=== PATIENT | female | born 1985 | race Caucasian/White ===

== ENCOUNTER 2022-07-18 11:09 | Emergency (ER) | payer OTHER ==
--- NOTE | 2022-07-18 12:12 | XRAY Report ---
PROCEDURE: Chest 2 View X-Ray INDICATIONS: cough TECHNIQUE: 2 views of the chest were acquired. COMPARISON: None. FINDINGS: Surgical changes and devices: None. Lungs and pleura: No pleural effusions or pneumothorax. Mild pulmonary interstitial prominence. No f ocal consolidation. Mediastinum: Mediastinal contours are normal. Heart size is normal. Bones and chest wall: No suspicious bony abnormalities. Soft tissues appear unremarkable. IMPRESSION: No acute cardiopulmonary disease. Reviewed by: Sabas Dennison MD on 07/18/2022 12:10 PM [facility] Approved by: Sabas Dennison MD on 07/18/2022 12:10 PM [facility] Station ID: [id number]
[2022-07-18 12:42] LABS: B. PARAPERTUSSIS- RESP PCR PAN NOT DETECTED; B. PERTUSSIS- RESP PCR PANEL NOT DETECTED; C. PNEUMONIAE- RESP PCR PANEL NOT DETECTED; CORONAVIRUS 229E-RESP PCR NOT DETECTED; CORONAVIRUS HKU1-RESP PCR NOT DETECTED; CORONAVIRUS NL63-RESP PCR NOT DETECTED; CORONAVIRUS OC43-RESP PCR NOT DETECTED; HUMAN METAPNEUMOVIRUS NOT DETECTED; INFLUENZA A- RESP PCR PANEL NOT DETECTED; INFLUENZA B - RESP PCR PANEL NOT DETECTED; M. PNEUMONIAE- RESP PCR PANEL NOT DETECTED; PARAINFLUENZA VIRUS 1 DETECTED; PARAINFLUENZA VIRUS 2 NOT DETECTED; PARAINFLUENZA VIRUS 3 NOT DETECTED; PARAINFLUENZA VIRUS 4 NOT DETECTED; RHINOVIRUS/ENTEROVIRUS NOT DETECTED; RSV- RESP PCR PANEL NOT DETECTED; SARS-CoV-2 -RESP PCR PANEL NOT DETECTED
--- NOTE | 2022-07-18 13:00 | ED Physician Documentation ---
PD HPI URI - Stated complaint Stated Complaint: COUGH - Chief complaint Chief Complaint: Resp - History obtained from History obtained from: Patient - Additional information Additional information: Previously healthy 37-year-old woman has had nasal congestion and a productive cough for the last 6 days. No fevers or chills. She was exposed to a sick contact at work. No history of heart or lung disease. PD PAST MEDICAL HISTORY - Present Medications Home Medications: Ambulatory Orders Medication Instructions Recorded Confirmed Albuterol Sulf [Ventolin Hfa 1 - 2 puffs INH Q4HR PRN #1 each 07/18/22 Inhaler] Benzonatate [Tessalon] 200 mg PO TID PRN #20 cap 07/18/22 guaiFENesin/CODEINE [Robitussin AC] 5 - 10 ml PO Q6H PRN #120 ml 07/18/22 - Allergies Allergies/Adverse Reactions: Allergies Allergy/AdvReac Type Severity Reaction Status Date / Time diazepam [From Valium] Allergy Anaphylaxis Verified 07/18/22 11:41 nitrofurantoin Allergy Anaphylaxis Verified 07/18/22 11:41 [From Macrobid] tetracycline Allergy Hives Verified 07/18/22 11:41 PD ED PE NORMAL - Vitals Vital signs reviewed: Yes - General General: Alert and oriented X 3, No acute distress - HEENT HEENT: Pharynx benign - Neck Neck: Supple, no meningeal sign, No bony TTP - Cardiac Cardiac: RRR, No murmur - Respiratory Respiratory: No respiratory distress, Other (Mild diffuse expiratory wheezes without focal findings) - Abdomen Abdomen: Non tender - Neuro Neuro: Alert and oriented X 3, Normal speech Results - Vitals Vitals: Vital Signs - 24 hr 07/18/22 11:39 Temperature 37.1 C Heart Rate 82 Respiratory 24 Rate Blood Pressure 133/81 H O2 Saturation 96 Oxygen O2 Source Room air - Labs Labs: Laboratory Tests 07/18/22 11:46 Nasal Adenovirus (PCR) NOT DETECTED Nasal B. parapertussis DNA (PCR) NOT DETECTED Nasal Coronavir 229E PCR NOT DETECTED Nasal Coronavir HKU1 PCR NOT DETECTED Nasal Coronavir NL63 PCR NOT DETECTED Nasal Coronavir OC43 PCR NOT DETECTED Nasal Enterovir/Rhinovir PCR NOT DETECTED Nasal Influenza B PCR NOT DETECTED Nasal Influenza A PCR NOT DETECTED Nasal Parainfluen 1 PCR DETECTED A Nasal Parainfluen 2 PCR NOT DETECTED Nasal Parainfluen 3 PCR NOT DETECTED Nasal Parainfluen 4 PCR NOT DETECTED Nasal RSV (PCR) NOT DETECTED Nasal B.pertussis DNA PCR NOT DETECTED Nasal C.pneumoniae (PCR) NOT DETECTED Liu Human Metapneumo PCR NOT DETECTED Nasal M.pneumoniae (PCR) NOT DETECTED Nasal SARS-CoV-2 (PCR) NOT DETECTED - Rads (name of study) 2 view chest x-ray is clear. Radiology: Final report received, EMP read indepedently PD Medical Decision Making - ED course ED course: 37-year-old woman with viral respiratory infection, bio fire positive for parainfluenza. Chest x-ray clear. She appears well. Will treat symptomatically as there is no evidence of bacterial issue. Departure - Departure Disposition: 01 Home, Self Care Clinical Impression: Viral bronchitis, Parainfluenza Condition: Good Record reviewed to determine appropriate education?: Yes Instructions: ED Viral Syndrome Prescriptions: Albuterol Sulf [Ventolin Hfa Inhaler] 1 - 2 puffs INH Q4HR PRN #1 each PRN Reason: Shortness Of Air/Wheezing guaiFENesin/CODEINE [Robitussin AC] 5 - 10 ml PO Q6H PRN #120 ml PRN Reason: Cough Benzonatate [Tessalon] 200 mg PO TID PRN #20 cap PRN Reason: Cough Comments: I sent your prescriptions electronically to the [facility] in [place]. Return for new or worsening symptoms or if not better over the next 3 to 5 days[address] not drink or drive while taking prescription cough medicine with codeine. Forms: Activity restrictions
[2022-07-18 13:33] VITALS: BP 142/77
== END 2022-07-18 13:32 | disposition home or self-care (01) ==
LOC: ED 11:09
DX: J20.4 Acute bronchitis due to parainfluenza virus (principal); Z20.822 Contact with and (suspected) exposure to COVID-19
CPT/HCPCS: 87633; 99284

== ENCOUNTER 2022-12-14 08:30 | Outpatient (CLI) | payer OTHER | END 2022-12-14 08:45 | disposition home or self-care (01) | LOC: LAB.N 08:30 | PROVIDERS: ATTEND Specialist | DX: R30.0 Dysuria (principal) | CPT/HCPCS: 87086 ==

== ENCOUNTER 2023-04-19 23:57 | Emergency (ER) | payer OTHER ==
[2023-04-20] MEDS ORDERED: PROPARACAINE 0.5% OPHTH DROPS 15 ML LEFTEYE STA (00:17)
[2023-04-20] MEDS ORDERED: oxyCODONE 5 MG TABLET PO STA (00:26)
--- NOTE | 2023-04-20 00:27 | ED Physician Documentation ---
PD HPI OPHTHO - Stated complaint Stated Complaint: L EYE INJ - Chief complaint Chief Complaint: Heent - History obtained from History obtained from: Patient - Additional information Additional information: Patient is a 38-year-old female presenting for evaluation of head injury and left eye bruising that occurred yesterday. Patient states that last night her cat was around her bed and knocked over a picture frame which then hit the patient around the left eye. Patient denies LOC. She does not take a blood thinner. She has taken some Tylenol but reports having a bad headache. She denies any changes to her vision but states that her eye feels irritated. Denies photophobia or discharge. Does not wear contacts or glasses. Review of Systems Constitutional: denies: Fever Eyes: denies: Decreased vision, Discharge Neurologic: reports: Head injury PD PAST MEDICAL HISTORY - Present Medications Home Medications: Ambulatory Orders Medication Instructions Recorded Confirmed Albuterol Sulf [Ventolin Hfa 1 - 2 puffs INH Q4HR PRN #1 each 07/18/22 Inhaler] HYDROcod/ACETAM 5/325 [[place] 5/325] 1 tablet PO Q6H PRN #12 tablet 04/20/23 - Allergies Allergies/Adverse Reactions: Allergies Allergy/AdvReac Type Severity Reaction Status Date / Time diazepam [From Valium] Allergy Anaphylaxis Verified 07/18/22 11:41 nitrofurantoin Allergy Anaphylaxis Verified 07/18/22 11:41 [From Macrobid] tetracycline Allergy Hives Verified 07/18/22 11:41 PD ED PE NORMAL - General General: Alert and oriented X 3, No acute distress, Well developed/nourished - HEENT HEENT: PERRL, EOMI, Other (Left periorbital ecchymosis, tenderness to superior orbital ridge, no tenderness to lower orbits or remaining facial bones) - Neck Neck: Supple, no meningeal sign, No bony TTP, C-Spine cleared by NEXUS criteria - Respiratory Respiratory: No respiratory distress - Derm Derm: Warm and dry - Neuro Neuro: Alert and oriented X 3, 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 No: Subconj hemorrhage, Fluorescein uptake, Hyphema Results - Vitals Vitals: Vital Signs - 24 hr 04/20/23 04/20/23 04/20/23 00:01 00:31 05:45 Temperature 36.1 C L Heart Rate 77 55 L Respiratory 100 H 16 16 Rate Blood Pressure 129/77 110/84 H O2 Saturation 100 98 Oxygen O2 Source Room air PD Medical Decision Making - ED course Complexity details: reviewed results, re-evaluated patient, d/w patient, other (Significant delays with CT During the shift.) ED course: Pt with injury to Head and L eye area after picture frame fell on her. Has bruising. Normal neuro exam. No signs of globe injury, corneal abrasion/ulcer or increased IOP. Visual acuity intact. CT head and maxillofacial obtained and reviewed. No bleeding. No signs of fracture or hematoma. Pt feeling better with pain medicine here. Plan for continued supportive care. Advised on concerning symptoms to return for. Departure - Departure Disposition: 01 Home, Self Care Clinical Impression: Head injury, Periorbital ecchymosis of left eye Condition: Stable Instructions: ED Contusion Eye, ED Head Injury Closed Prescriptions: HYDROcod/ACETAM 5/325 [[place] 5/325] 1 tablet PO Q6H PRN #12 tablet PRN Reason: Pain Comments: Your CT scans do not show any bleeding in your brain or any signs of a broken bone from your injury. Please continue with anti-inflammatory such as ibuprofen or acetaminophen, ice and getting rest. I have sent a small amount of narcotic pain medication to [facility] in [place]. Return to the ER with any worsening symptoms such as increased swelling, changes to your vision, increased pain or any other concerns. I am prescribing a short course of narcotic pain medication for you. These are potentially dangerous and addictive medications that should be used carefully. These medications may constipate you. Take an [id number]-[id number] stool softener (docusate) twice daily with plenty of water while taking these medications. If you go 24 hours without a bowel movement, take rhxa-yfv-huianmm miralax, per package instructions. Do not drink or drive while taking these medications. If you received narcotic or sedating medications while in the emergency department, do not drive for 24 hours. Store this medication in a safe, secure place and out of reach of children. It is a violation of federal law to give or sell this medication to another person or to use in a manner other than prescribed. The ED will not refill narcotic prescriptions, including prescriptions lost or stolen. To dispose of unwanted medications: 1. [facility] at [address] in [place] has a medication drop box. They accept prescription medications (in pill form) Tuesday through Tuesday 9:00 a.m. to 5:00 p.m. 2. The [facility] [employer] accepts prescription medications (in pill form only) for disposal year round. Call for more information. 3. Contact the [facility] for the next [facility] sponsored prescription drug collection event. , [phone], or [phone]; Note that many narcotic pain relievers also contain Tylenol/acetaminophen. Please ensure that your total dose of acetaminophen from all sources does not exceed 3 g (3000 mg) per day. Forms: PCP List Discharge Date/Time: 04/20/23 05:46
[2023-04-20] MEDS ORDERED: IBUPROFEN 600 MG TABLET PO STA (04:02)
[2023-04-20 05:50] VITALS: BP 110/84; O2SAT 98
--- NOTE | 2023-04-20 08:12 | CT Report ---
PROCEDURE: HEAD WO INDICATIONS: head injury/headache/bruising around L eye TECHNIQUE: Noncontrast 4.5 mm thick angled axial sections acquired from the foramen magnum to the vertex. For r adiation dose reduction, the following was used: automated exposure control, adjustment of mA and/or kV according to patient size. COMPARISON: None. FINDINGS: Image quality: Excellent. CSF spaces: Basal cisterns are patent. No extra-axial fluid collections. Ventricles are normal in size and shape. Brain: No midline shift. No intracranial masses or hemorrhage. العلي-white matter interface is norm al. Skull and face: Calvarium and visualized facial bones are intact, without suspicious lesions. Sinuses: Visualized sinuses and mastoids are clear. IMPRESSION: No acute intracranial pathology. Findings are concordant with preliminary interpretation provided by [facility]. Reviewed by: Bryan Chappell MD on 04/20/2023 8:11 AM PST Approved by: Bryan Chappell MD on 04/20/2023 8:11 AM PST Station ID: [id number]
--- NOTE | 2023-04-20 08:13 | CT Report ---
PROCEDURE: MAXILLOFACIAL WO INDICATIONS: head injury/headache/bruising around L eye TECHNIQUE: Noncontrast 1.5 mm thick axial images acquired from the mandible through the frontal sinuses, with co kathryn and sagittal reformatting. For radiation dose reduction, the following was used: automated ex posure control, adjustment of mA and/or kV according to patient size. COMPARISON: None. FINDINGS: Image quality: Excellent. Bones and teeth: Orbital lambert are intact. Sinus lambert show no fracture or deformity. Nasal bones and septum are intact. Visualized portions of the mandible demonstrate no fractures or subluxation. Zygomatic arches are intact. Pterygoid plates are intact. Visualized portions of the skull base an d auditory canals are intact. Sinuses: Paranasal sinuses are aerated, without fluid levels, mucosal thickening, or mucoceles. Mas toid air cells are aerated. Soft tissues: Left periorbital swelling. No masses or fluid collections. No enlarged lymph nodes. N o soft tissue lacerations or debris. Vascular: Visualized vascular structures appear normal in the absence of contrast. Bony vascular fo ramina and canals are intact. IMPRESSION: No displaced facial bone fracture or mandibular fracture. Findings are concordant with preliminary interpretation provided by [facility]. Reviewed by: Bryan Chappell MD on 04/20/2023 8:12 AM PST Approved by: Bryan Chappell MD on 04/20/2023 8:12 AM PST Station ID: [id number]
== END 2023-04-20 05:46 | disposition home or self-care (01) ==
LOC: ED 23:57
DX: S09.90XA Unspecified injury of head, initial encounter (principal); S00.12XA Contusion of left eyelid and periocular area, initial encounter; W20.8XXA Other cause of strike by thrown, projected or falling object, initial encounter; Y93.84 Activity, sleeping; Y92.003 Bedroom of unspecified non-institutional (private) residence as the place of occurrence of the external cause
CPT/HCPCS: 70450; 70486; 99283; 99284; A9270; J3490

== ENCOUNTER 2023-05-24 10:09 | Emergency (ER) | payer OTHER ==
[2023-05-24 11:19] LABS: BASOPHILS # (AUTO) 0.1 10^3/uL (0.0-0.1); BASOPHILS % (AUTO) 1.2 %; EOSINOPHILS # (AUTO) 0.5 10^3/uL (0.0-0.7); EOSINOPHILS % (AUTO) 6.9 %; HCT - HEMATOCRIT 40.4 % (37.0-47.0); HGB - HEMOGLOBIN 13.4 g/dL (12.0-16.0); LYMPHOCYTES # (AUTO) 2.2 10^3/uL (1.5-3.5); LYMPHOCYTES % (AUTO) 29.1 %; MEAN CORPUSCULAR HEMOGLOBIN 28.2 pg (27.0-31.0); MEAN CORPUSCULAR HGB CONC 33.2 g/dL (32.0-36.0); MEAN CORPUSCULAR VOLUME 85.1 fL (81.0-99.0); MONOCYTES # (AUTO) 0.5 10^3/uL (0.0-1.0); MONOCYTES % (AUTO) 6.5 %; NEUTROPHILS # (AUTO) 4.2 10^3/uL (1.5-6.6); NEUTROPHILS % (AUTO) 55.9 %; PLT - PLATELET COUNT 406 10^3/uL (130-450); RED BLOOD COUNT 4.75 10^6/uL (4.20-5.40); WHITE BLOOD COUNT 7.6 x10^3/uL (4.8-10.8)
[2023-05-24 11:25] LABS: ALBUMIN 4.3 g/dL (3.2-5.5); ALBUMIN/GLOBULIN RATIO 1.6 (1.0-2.2); BILIRUBIN,TOTAL 0.4 mg/dL (0.2-1.0); CALCIUM 9.3 mg/dL (8.5-10.3); CREATININE 0.9 mg/dL (0.6-1.3); POTASSIUM 3.4 mmol/L (3.5-4.5)
[2023-05-24 11:43] LABS: BILIRUBIN,URINE NEGATIVE (NEGATIVE); GLUCOSE, URINE (UA) NEGATIVE (NEGATIVE); KETONES,URINE (UA) TRACE mg/dL (NEGATIVE); LEUKOCYTE ESTERASE, URINE TRACE (NEGATIVE); NITRITE,URINE NEGATIVE (NEGATIVE); OCCULT BLOOD,URINE TRACE-INTA (NEGATIVE); PROTEIN,URINE TRACE mg/dL (NEGATIVE); UROBILINOGEN,URINE 0.2 (NORMAL) E.U./dL (NORMAL)
[2023-05-24 11:45] LABS: CLARITY,URINE CLEAR (CLEAR); HCG UR QUAL NEGATIVE
[2023-05-24] MEDS ORDERED: SODIUM CHLORIDE 0.9% 1,000 ML IV STA (11:53)
[2023-05-24] MEDS ORDERED: METOCLOPRAMIDE 10 MG/2 ML VIAL IVP STA (11:54)
[2023-05-24 11:57] LABS: BACTERIA,URINE Few /HPF (None Seen); CRYSTALS,URINE 3-5 Calcium Oxalate /LPF; MUCUS,URINE Moderate Strands; RBC,URINE 0-5 /HPF (0-5); SQUAMOUS EPITHELIAL CELL,UR MOD Squamous (<= Few)
--- NOTE | 2023-05-24 11:57 | ED Physician Documentation ---
History of Present Illness - Stated complaint Stated Complaint: N/V/D - Chief complaint Chief Complaint: Abd Pain - Additonal information Additional information: Patient 38-year-old female presenting to the emergency department chief complai nt nausea, vomiting, diarrhea. Reports symptoms ongoing x 1-2 weeks. Daily vomiting particularly in the mornings. Reports 2 episodes of loose stool. Reports feeling rundown and dehydrated. Denies fever, travel, drinking from unsecure water sources, recent antibiotics. Review of Systems Constitutional: denies: Fever Eyes: denies: Loss of vision Ears: denies: Loss of hearing Nose: denies: Rhinorrhea / runny nose Throat: denies: Dental pain / toothache Cardiac: denies: Chest pain / pressure GI: reports: Nausea, Vomiting, Diarrhea. denies: Abdominal Pain PD PAST MEDICAL HISTORY - Past Medical History Past Medical History: Yes Cardiovascular: None Respiratory: None Neuro: None Endocrine/Autoimmune: None GI: None SENIOR MECHANICAL TECHNICIAN: None : None HEENT: None Psych: Depression, Anxiety, ADD/ADHD Musculoskeletal: None Derm: Rosacea - Past Surgical History Past Surgical History: Yes HEENT: Tonsil/Adenoidectomy, Other - Present Medications Home Medications: Ambulatory Orders Medication Instructions Recorded Confirmed Cetirizine [ZyrTEC] 10 mg PO DAILY 05/24/23 05/24/23 Dextroamphetamine/Amphetamine 10 mg PO DAILY 05/24/23 05/24/23 [Adderall 10 mg Tablet] Loperamide [Imodium] 2 mg PO ONCE PRN #30 cap 05/24/23 Metoclopramide [Reglan] 10 mg PO Q6H PRN #20 tablet 05/24/23 Norethindrone-E.estradiol-Iron 1 each PO DAILY 05/24/23 05/24/23 [Junel Fe 24 Tablet] Omeprazole Magnesium 20 mg PO DAILY 05/24/23 05/24/23 Sertraline HCl 200 mg PO DAILY 05/24/23 05/24/23 buPROPion HCL [Bupropion Xl] 150 mg ORAL DAILY 05/24/23 05/24/23 - Allergies Allergies/Adverse Reactions: Allergies Allergy/AdvReac Type Severity Reaction Status Date / Time diazepam [From Valium] Allergy Anaphylaxis Verified 05/24/23 10:36 nitrofurantoin Allergy Anaphylaxis Verified 05/24/23 10:36 [From Macrobid] tetracycline Allergy Hives Verified 05/24/23 10:36 - Social History Does the pt smoke?: No Smoking Status: Never smoker Does the pt drink ETOH?: Yes Does the pt have substance abuse?: No - Immunizations Immunizations are current?: Yes PD ED PE NORMAL - Vitals Vital signs reviewed: Yes - General General: Alert and oriented X 3, No acute distress - HEENT HEENT: Atraumatic, PERRL - Neck Neck: Supple, no meningeal sign - Cardiac Cardiac: RRR - Respiratory Respiratory: No respiratory distress - Abdomen Abdomen: Normal bowel sounds, Soft, Non tender, Non distended, No organomegaly Results - Vitals Vitals: Vital Signs - 24 hr 05/24/23 10:36 Temperature 36.5 C Heart Rate 82 Respiratory 18 Rate Blood Pressure 142/77 H O2 Saturation 100 Oxygen O2 Source Room air - Labs Labs: Laboratory Tests 05/24/23 05/24/23 05/24/23 10:53 11:02 11:02 WBC 7.6 RBC 4.75 Hgb 13.4 Hct 40.4 MCV 85.1 MCH 28.2 MCHC 33.2 RDW 13.0 Plt Count 406 MPV 10.0 Neut # (Auto) 4.2 Lymph # (Auto) 2.2 [place] # (Auto) 0.5 Eos # (Auto) 0.5 Baso # (Auto) 0.1 Absolute Nucleated RBC 0.00 Nucleated RBC % 0.0 Sodium 138 Potassium 3.4 L Chloride 103 Carbon Dioxide 25 Anion Gap 10.0 BUN 12 Creatinine 0.9 Estimated GFR (MDRD) 70 L Glucose 89 Calcium 9.3 Total Bilirubin 0.4 AST 24 ALT 29 Alkaline Phosphatase 62 Total Protein 7.0 Albumin 4.3 Globulin 2.7 Albumin/Globulin Ratio 1.6 Lipase 31 Urine Color YELLOW Urine Clarity CLEAR Urine pH 6.0 Ur Specific [place] >=1.030 H Urine Protein TRACE Urine Glucose (UA) NEGATIVE Urine Ketones TRACE Urine Occult Blood TRACE-INTA Urine Nitrite NEGATIVE Urine Bilirubin NEGATIVE Urine Urobilinogen 0.2 (NORMAL) Ur Leukocyte Esterase TRACE H Urine RBC 0-5 Urine WBC 6-10 H Ur Squamous Epith Cells MOD Squamous H Urine Crystals 3-5 Calcium Oxalate Urine Bacteria Few Urine Mucus Moderate Strands Ur Microscopic Review INDICATED Urine Culture Comments NOT INDICATED Urine HCG, Qual NEGATIVE PD Medical Decision Making - ED course Complexity details: reviewed results, re-evaluated patient, considered differential, d/w patient ED course: Patient 38-year-old female presenting with 2 weeks nausea vomiting diarrhea. Afebrile, hemodynamically stable. Benign abdominal exam. Vitals within normal limits on arrival. Labs obtained demonstrated a very minimal hypokalemia with potassium 3.4 but no significant electrolyte abnormalities. Her urine analysis did have a few white blood cells and trace leukocyte esterases but this was also in the setting of multiple squames and she is not having symptoms that would be typical of urinary tract infection. I do not see any indication at this time for more advanced imaging such as CT of her abdomen pelvis. She was given a dose of Reglan and IV hydration in the emergency department. She attempted to provide stool studies but she was unable to provide sample and studies are not collected in the emergency department. At this time will discharge with short course of Reglan and Imodium for her use as needed and encouraged her to follow-up with her primary care doctor. Departure - Departure Disposition: 01 Home, Self Care Clinical Impression: Vomiting Qualifiers: Vomiting type: unspecified Nausea presence: with nausea Qualified Code(s): R11.2 - Nausea with vomiting, unspecified Diarrhea Qualifiers: Diarrhea type: unspecified type Qualified Code(s): R19.7 - Diarrhea, unspecified Instructions: ED Diet Vomiting Diarrhea, ED Vomiting Diarrhea Nonspecific Ad Prescriptions: Loperamide [Imodium] 2 mg PO ONCE PRN #30 cap PRN Reason: Diarrhea Metoclopramide [Reglan] 10 mg PO Q6H PRN #20 tablet PRN Reason: Nausea / Vomiting Comments: Thank you for allowing us to care for you today [facility]. Today in the emergency department your evaluated for any possible dangerous or life-threatening medical condition. Your testing in the emergency department today was very reassuring. You did have a very minimal hypokalemia or low blood potassium. Would like to encourage you to increase your intake of potassium rich foods such as bananas, tomatoes, avocados or potatoes for the next few days. I written prescriptions for nausea and diarrhea which you can take as needed. I would like you to follow-up with your primary care doctor as soon as possible. If it anytime you have new or worsening symptoms please not hesitate to return. Forms: PCP List
[2023-05-24 13:22] VITALS: BP 120/68; O2SAT 100
== END 2023-05-24 13:17 | disposition home or self-care (01) ==
LOC: ED 10:09
DX: R11.2 Nausea with vomiting, unspecified (principal); R19.7 Diarrhea, unspecified
CPT/HCPCS: 36415; 80053; 81001; 81025; 83690; 85025; 96374; 99283; 99284; J2765; 81003; 87086